=== PATIENT | female | born 1985 | race Caucasian/White ===

== ENCOUNTER 2020-07-13 14:07 | Observation (INO) | payer BC ==
--- NOTE | 2020-07-13 15:11 | CT ---
EXAMINATION TYPE: CT brain wo con DATE OF EXAM: 07/13/2020 COMPARISON: None. HISTORY: Stroke symptoms started yesterday. Acute onset neuro deficit. CT DLP: 1048.4 mGycm. Automated Exposure Control for Dose Reduction was Utilized. TECHNIQUE: CT scan of the head is performed without contrast. FINDINGS: There is no acute intracranial hemorrhage, mass effect, or midline shift identified. The ventricles and sulci are within normal limits in size. Sin-white matter differentiation is maintain ed. Prominence of CSF posterior aspect of the posterior fossa may reflect megacisterna magna. The kamilla bes are intact and the visualized sinuses are clear. IMPRESSION: No acute intracranial hemorrhage or midline shift is seen.
[2020-07-13 15:30] LABS: Basophils # (A) 0.1 k/uL (0-0.2); Basophils % (A) 1 %; Eosinophils # (A) 0.1 k/uL (0-0.7); Eosinophils % (A) 1 %; HCT 43.7 % (34.0-46.0); HGB 14.7 gm/dL (11.4-16.0); Lymphocytes # (A) 0.7 k/uL (1.0-4.8); Lymphocytes % (A) 6 %; MCHC 33.6 g/dL (31.0-37.0); Mean Platelet Volume 9.1; Monocytes # (A) 0.2 k/uL (0-1.0); Monocytes % (A) 1 %; Neutrophils # (A) 9.8 k/uL (1.3-7.7); Neutrophils % (A) 91 %; Platelet Count 193 k/uL (150-450); RBC 5.08 m/uL (3.80-5.40); RDW 12.7 % (11.5-15.5); WBC 10.8 k/uL (3.8-10.6)
--- NOTE | 2020-07-13 15:34 | CT ---
EXAMINATION TYPE: CT angio head neck DATE OF EXAM: 07/13/2020 HISTORY: Left arm weakness, acute onset neuro deficit. COMPARISON: None. CT DLP: 420.3 mGycm. Automated Exposure Control for Dose Reduction was Utilized. TECHNIQUE: CTA scan of the head and neck are performed with IV Contrast, patient injected with 65 mL of Isovue 370, axial images are obtained, coronal and sagittal reformatted images are reviewed. Thre e-D reconstructed images are created on an independent workstation and reviewed. FINDINGS: Carotid/Vascular Structures: Normal 3 vessel origin from the aortic arch. Normal origin right common carotid artery from the brachiocephalic artery. No significant plaque or stenosis in the common or in ternal carotid arteries bilaterally. Patent external carotid arteries bilaterally. Patent codominant vertebral basilar cysts system. Patent bilateral posterior communicating arteries. Patent anterior communicating artery. Hypoplastic right A1 segment with filling of the A2 segment due to patent anterior communicating artery, normal variant. No significant focal stenosis or aneurysmal change. Other: Dependent fluid in the right maxillary sinus. There is 1.0 cm mucous retention cyst or polyp i n the anterior left maxillary sinus. There are single bilateral low dense thyroid nodules, nonemergent thyroid ultrasound advised to [facility] evaluate. Slight scoliotic curvature. Slight grade 1 retrolisthesis C5 on C6 and C6 on C7. IMPRESSION: No significant stenosis in common and internal carotid arteries bilaterally. No signific ant stenosis or aneurysm at level of [place].
[2020-07-13 15:49] LABS: ALT 13 U/L (4-34); AST 15 U/L (14-36); African American GFR (CKD) >90 (>60 ml/min/1.73 sqM); Albumin 4.9 g/dL (3.5-5.0); Alkaline Phosphatase 63 U/L (38-126); Anion Gap 11 mmol/L; Blood Urea Nitrogen 10 mg/dL (7-17); Calcium 9.9 mg/dL (8.4-10.2); Carbon Dioxide 24 mmol/L (22-30); Chloride 104 mmol/L (98-107); Glucose 119 mg/dL (74-99); Non-African American GFR(CKD) >90 (>60 ml/min/1.73 sqM); Potassium 4.1 mmol/L (3.5-5.1); Sodium 139 mmol/L (137-145); Total Bilirubin 0.5 mg/dL (0.2-1.3); Total Protein 7.8 g/dL (6.3-8.2)
[2020-07-13 15:50] LABS: Partial Thromboplastin Time 24.6 sec (22.0-30.0); Prothrombin Time 10.6 sec (9.0-12.0)
--- NOTE | 2020-07-13 16:02 | ED ---
Recheck HPI - General Chief Complaint: Recheck/Abnormal Lab/Rx Stated Complaint: hypertension Time Seen by Provider: 07/13/20 14:28 Source: patient Mode of arrival: ambulatory Limitations: no limitations - History of Present Illness Initial Comments: 35-year-old female presenting for multiple complaints. 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 She states that her right side of her face was tingly and would not rise like the other side beginning at 1030PM 07/11/20. She states that her forehead was always able to move. She denies vision changes headaches nausea vomiting arm or leg weakness she denies chest pain or shortness of breath. Patient states when she went to the physician yesterday morning he put her on steroids diagnosed her with Martinez palsy she states that she felt the steroids help because of symptoms of the face resolved today. She states she did feel like the right side of her face was slightly swollen. she thought maybe it was even an allergic reaction. she states that her BP was elevated in the primary care office and she was told to monitor it. Pt states today her heart rate went up to 156 while [address] her fit bit alerted her and she felt flush. pt statse she was concerned it was related to her symptoms yesterdya and she presented to the ER. Upon arrival patient appears well nontoxic NIH 0. - Related Data Allergies Allergy/AdvReac Type Severity Reaction Status Date / Time Penicillins Allergy Unknown Verified 07/13/20 14:16 Review of Systems ROS Statement: Those systems with pertinent positive or pertinent negative responses have been documented in the HPI. ROS Other: All systems not noted in ROS Statement are negative. 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 History of Any Multi-Drug Resistant Organisms: None Reported Past Surgical History: No Surgical Hx Reported Past Psychological History: No Psychological Hx Reported Smoking Status: Never smoker Past Alcohol Use History: None Reported Past Drug Use History: None Reported General Exam - General Exam Comments Initial Comments: General: The patient is awake and alert, in no distress, and does not appear acutely ill. Eye: +3 mm pupils are equal, round and reactive to light, extra-ocular movements are intact. No nystagmus. There is normal conjunctiva bilaterally. No signs of icterus. Ears, nose, mouth and throat: There are moist mucous membranes and no oral lesions. Neck: The neck is supple, there is no tenderness or JVD. Cardiovascular: There is a regular rate and rhythm. No murmur, rub or gallop is appreciated. Respiratory: Lungs are clear to auscultation, respirations are non-labored, breath sounds are equal. No wheezes, stridor, rales, or rhonchi. Gastrointestinal: Soft, non-distended, non-tender abdomen without masses or organomegaly noted. There is no rebound or guarding present. Musculoskeletal: Normal ROM, no tenderness. Strength 5/5. Sensation intact. Pulses equal bilaterally 2+. Neurological: A&O x 3. CN II-XII intact, memory intact to immediately, intermediate and moth exterminator recall. Able to follow simple verbal. Able to name a common object (phone). High quality, labial (pa) and lingual (la) speech. Low quality posterior pharynx/larynx (ga) voice sounds. Able to express general knowledge (days in a week). No hemineglect or inattention noted. Finger agnosia (-) and spatially oriented (identified L index finger touched R shoulder with L index finger). Light touch sensation present over the face, chest, abdomen, back, UE bilaterally, and LE bilaterally. Able to localize point during point localization b/l and extinction. No visible bulk atrophy, hypertrophy, fasciculations, or myoclonus of the UE or LE b/l. Full PROM in UE and LE b/l. Bilateral muscle strength 5/5 for the following muscles: deltoid, biceps, triceps, brachioradialis, wrist extensors/flexor, hip flexor, hip abductors/adductors, hamstrings, quadriceps, feet dorsiflexors/plantar flexors. Finger to nose, finger to the examiners finger, and heel to sy coordinated and accurate b/l. Coordinated and even demonstration of hand flip, finger to thumb, and toe tap b/l. Gait is coordinated and even in stride with tandem.(-) pronator drift. No nuchal rigidity. Skin: Skin is warm and dry and no rashes or lesions are noted. Psychiatric: Cooperative, appropriate mood & affect, normal judgment. Limitations: no limitations Course Vital Signs 07/13/20 07/13/20 07/13/20 14:12 15:00 16:36 Temperature 99.2 F 98.2 F Pulse Rate 116 H 100 112 H Respiratory 18 16 18 Rate Blood Pressure 153/69 144/76 133/85 O2 Sat by Pulse 98 100 99 Oximetry - Reevaluation(s) Reevaluation #1: 07/13/20 17:01 Dr. Louis Tate recommended MRI of brain, TSH, LIpid panel, 2D echo, cardiology consultation and duel anticoagulation (aspirin and plavix), he states 40mg of lipitor can be initiated as well. he states neurology will see patient on Thursday. I relayed these requests to accepting physicain Dr. Castellanos 07/13/20 17:17 Medical Decision Making - Medical Decision Making Labs stable. No arrhythmias on EKG. Chest x-ray clear. CTA and CT brain without abnormality. Neurology consulted, agreeable to admission at this facility for TIA with specific recommends. Dr. Castellanos accepted admission. pt agreeable to admission. / megan agreeable to care plan. - Lab Data Result diagrams: 07/13/20 15:13 07/13/20 15:13 Lab Results 07/13/20 07/13/20 07/13/20 Range/Units 15:13 15:13 15:13 WBC 10.8 H (3.8-10.6) k/uL RBC 5.08 (3.80-5.40) m/uL Hgb 14.7 (11.4-16.0) gm/dL Hct 43.7 (34.0-46.0) % MCV 86.0 (80.0-100.0) fL MCH 29.0 (25.0-35.0) pg MCHC 33.6 (31.0-37.0) g/dL RDW 12.7 (11.5-15.5) % Plt Count 193 (150-450) k/uL MPV 9.1 Neutrophils % 91 % Lymphocytes % 6 % Monocytes % 1 % Eosinophils % 1 % Basophils % 1 % Neutrophils # 9.8 H (1.3-7.7) k/uL Lymphocytes # 0.7 L (1.0-4.8) k/uL Monocytes # 0.2 (0-1.0) k/uL Eosinophils # 0.1 (0-0.7) k/uL Basophils # 0.1 (0-0.2) k/uL PT 10.6 (9.0-12.0) sec INR 1.0 (<1.2) APTT 24.6 (22.0-30.0) sec Sodium 139 (137-145) mmol/L Potassium 4.1 (3.5-5.1) mmol/L Chloride 104 (98-107) mmol/L Carbon Dioxide 24 (22-30) mmol/L Anion Gap 11 mmol/L BUN 10 (7-17) mg/dL Creatinine 0.63 (0.52-1.04) mg/dL Est GFR (CKD-EPI)AfAm >90 (>60 ml/min/1.73 sqM) Est GFR (CKD-EPI)NonAf >90 (>60 ml/min/1.73 sqM) Glucose 119 H (74-99) mg/dL Calcium 9.9 (8.4-10.2) mg/dL Total Bilirubin 0.5 (0.2-1.3) mg/dL AST 15 (14-36) U/L ALT 13 (4-34) U/L Alkaline Phosphatase 63 (38-126) U/L Troponin I (0.000-0.034) ng/mL Total Protein 7.8 (6.3-8.2) g/dL Albumin 4.9 (3.5-5.0) g/dL 07/13/20 Range/Units 15:13 WBC (3.8-10.6) k/uL RBC (3.80-5.40) m/uL Hgb (11.4-16.0) gm/dL Hct (34.0-46.0) % MCV (80.0-100.0) fL MCH (25.0-35.0) pg MCHC (31.0-37.0) g/dL RDW (11.5-15.5) % Plt Count (150-450) k/uL MPV Neutrophils % % Lymphocytes % % Monocytes % % Eosinophils % % Basophils % % Neutrophils # (1.3-7.7) k/uL Lymphocytes # (1.0-4.8) k/uL Monocytes # (0-1.0) k/uL Eosinophils # (0-0.7) k/uL Basophils # (0-0.2) k/uL PT (9.0-12.0) sec INR (<1.2) APTT (22.0-30.0) sec Sodium (137-145) mmol/L Potassium (3.5-5.1) mmol/L Chloride (98-107) mmol/L Carbon Dioxide (22-30) mmol/L Anion Gap mmol/L BUN (7-17) mg/dL Creatinine (0.52-1.04) mg/dL Est GFR (CKD-EPI)AfAm (>60 ml/min/1.73 sqM) Est GFR (CKD-EPI)NonAf (>60 ml/min/1.73 sqM) Glucose (74-99) mg/dL Calcium (8.4-10.2) mg/dL Total Bilirubin (0.2-1.3) mg/dL AST (14-36) U/L ALT (4-34) U/L Alkaline Phosphatase (38-126) U/L Troponin I <0.012 (0.000-0.034) ng/mL Total Protein (6.3-8.2) g/dL Albumin (3.5-5.0) g/dL Disposition Clinical Impression: TIA (transient ischemic attack), Tachycardia, Elevated blood pressure reading Disposition: ADMITTED IP TO THIS [facility] Condition: Stable Is patient prescribed a controlled substance at d/c from ED?: No Referrals: Jamal Blake DO [Primary Care Provider] - 1-2 days Time of Disposition: 17:05 Decision to Admit Reason: Admit from EC Decision Date: 07/13/20 Decision Time: 17:05
[2020-07-13] MEDS ORDERED: ASPIRIN 325 MG TAB PO STA (16:07)
[2020-07-13] MEDS ORDERED: CLOPIDOGREL 75 MG TAB PO STA (16:55)
[2020-07-13] MEDS ORDERED: ATORVASTATIN 40 MG TAB PO STA (16:56)
--- NOTE | 2020-07-13 17:00 | XR ---
EXAMINATION TYPE: XR chest 2V DATE OF EXAM: 07/13/2020 COMPARISON: NONE HISTORY: Numbness in the face TECHNIQUE: 2 views FINDINGS: Heart and mediastinum are normal. Lungs are clear. Diaphragm is normal. Bony thorax appears normal. There are chest leads. IMPRESSION: Normal chest.
[2020-07-13] MEDS ORDERED: ASPIRIN 81 MG PO STA (17:18)
--- NOTE | 2020-07-13 18:53 | MR ---
EXAMINATION TYPE: MR brain wo con DATE OF EXAM: 07/13/2020 COMPARISON: None No evidence of cortical infarct. HISTORY: TIA, symptoms resolved. Multiplanar multiecho imaging of the brain was performed without contrast. Ventricles have normal size. There is no mass effect nor midline shift. There is no sign of intracran ial hemorrhage. Diffusion images show no evidence of an acute infarct. Brainstem is intact. Sin-whit e matter structures have fairly normal signal pattern. There is no evidence of cerebral edema. There is a single 3 mm focus of increased signal in the white matter left parietal lobe. There is a similar 3 mm focus at the subcortical lateral right posterior frontal lobe. The corpus callosum appears norm al. Cerebellum appears normal. Sella turcica appears normal. IMPRESSION: Isolated small white matter high signal foci of doubtful significance. Right maxillary sinusitis note d with fluid level.
[2020-07-14 08:19] LABS: Cholesterol 194 mg/dL (<200); HDL Cholesterol 44 mg/dL (40-60); LDL Cholesterol,Calculated 134 mg/dL (0-99); Triglycerides 82 mg/dL (<150)
[2020-07-14] MEDS ORDERED: ASPIRIN 325 MG TAB PO SCH (09:00)
[2020-07-14] MEDS: ASPIRIN 81 MG PO SCH (09:16)
--- NOTE | 2020-07-14 09:31 | P.CRDCN ---
History of Present Illness Consult date: 07/14/20 History of present illness: CHIEF COMPLAINT: Tachycardia HISTORY OF PRESENT ILLNESS: This is a 35-year-old female with no significant past medical history. Patient does not follow with a executive relations specialist. We have been asked to see the patient in consultation for tachycardia. Patient states Thursday night when she went to sleep she noticed that her face felt numb. She states that she took a Benadryl. When she woke up her face was still numb and she took another Benadryl. She states her symptoms did not resolve. On Thu she went to see her primary care physician was diagnosed with Martinez's palsy. She was placed on steroids. She states when she was at her physician's office her blood pressure was 150s/80s. She states her heart rate was elevated but she is not sure how high it was. She states yesterday she was driving and got a sharp shooting pain down her left arm. She states she looked at her fit that and noticed her heart rate started to increase and was in the 150s. She reports feeling palpitations. Due to her heart rate being elevated, she came to the hospital for further evaluation. At the time of examination this morning, the patient denies chest pain or pressure. She denies shortness of breath. She reports feeling palpitations. She does appear anxious about her recent diagnosis of Martinez's palsy. engine monitor reveals sinus tachycardia with heart rate in the 120s. Patient's heart rate at rest is in the 80s. No evidence of atrial fibrillation on the monitor. DIAGNOSTICS: EKG reveals sinus tachycardia Chest xray negative for acute process CTA brain negative for acute process CT brain negative for acute process MRI of the brain: Isolated small white matter high signal foci of doubtful significance. Laboratory data: W BC 10.8. Hemoglobin 14.7. Platelet count 193. Sodium 139. Potassium 4.1. BUN 10. Creatinine 0.63. TSH 1.370. Troponin negative 1. Current home cardiac medications include none REVIEW OF SYSTEMS: At the time of my exam: CONSTITUTIONAL: Denies fever or chills. HEENT: Denies blurred vision, vision changes, or eye pain. Denies hemoptysis CARDIOVASCULAR: Denies chest pain, orthopnea, PND. Reports palpitations. RESPIRATORY: No shortness of breath. GASTROINTESTINAL: Denies abdominal pain. Denies nausea or vomiting. HEMATOLOGIC: Denies bleeding disorders. GENITOURINARY: Denies any blood in urine. SKIN: Denies pruitis. Denies rash. PHYSICAL EXAM: VITAL SIGNS: Reviewed. GENERAL: Well-developed in no acute distress. HEENT: Head is normocephalic. Pupils are equal, round. Sclerae anicteric. Mucous membranes of the mouth are moist. Neck supple. No JVD or thyromegaly LUNGS: Respirations even and unlabored. Lungs essentially clear to auscultation bilaterally. HEART: Tachycardic. Regular rate and rhythm. S1 and S2 heard. ABDOMEN: Soft. Nondistended. Nontender. EXTREMITIES: Normal range of motion. No clubbing or cyanosis. Peripheral pulses intact. No lower extremity edema NEUROLOGIC: Awake and alert. Oriented x 3. ASSESSMENT: Palpitations Sinus tachycardia Recent diagnosis of Martinez's palsy PLAN: Continue telemetry monitoring Obtain 2-D echo to assess cardiac structure and function Neurology consulted. Await evaluation Further recommendations pending patient's course Nurse practitioner note has been reviewed by physician. Signing provider agrees with the documented findings, assessment, and plan of care. 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 History of Any Multi-Drug Resistant Organisms: None Reported Past Surgical History: No Surgical Hx Reported Additional Past Surgical History / Comment(s): wisdom teeth removed Past Anesthesia/Blood Transfusion Reactions: No Reported Reaction Past Psychological History: No Psychological Hx Reported Smoking Status: Never smoker Past Alcohol Use History: None Reported Past Drug Use History: None Reported - Past Family History Father Family Medical History: Hypertension Mother Family Medical History: Hyperlipidemia, Hypertension Medications and Allergies Home Medications Medication Instructions Recorded Confirmed Type Ascorbic Acid [Vitamin C] 1,000 mg PO DAILY 07/13/20 07/13/20 History Cholecalciferol [Vitamin D3 (25 1,000 unit PO DAILY 07/13/20 07/13/20 History Mcg = 1000 Iu)] Fish Oil/Dha/Epa [Fish Oil 1,200 1 cap PO DAILY 07/13/20 07/13/20 History mg Fish Oil] Magnesium Oxide [Giraldo] 500 mg PO DAILY 07/13/20 07/13/20 History predniSONE [Deltasone] See Taper PO DIRECTED 07/13/20 07/13/20 History Allergies Allergy/AdvReac Type Severity Reaction Status Date / Time Penicillins Allergy Unknown Verified 07/13/20 17:27 Physical Exam Vitals: Vital Signs Temp Pulse Pulse Resp BP BP Pulse Ox 07/14/20 08:36 121 H 16 07/14/20 07:33 98.1 F 121 H 16 144/84 99 07/14/20 03:00 98.1 F 119 H 16 135/80 100 07/13/20 20:40 99.3 F 115 H 16 132/79 100 07/13/20 18:43 99.7 F H 108 H 16 132/86 98 07/13/20 17:00 98.6 F 105 H 20 122/65 99 07/13/20 16:36 112 H 18 133/85 99 07/13/20 15:00 98.2 F 100 16 144/76 100 07/13/20 14:12 99.2 F 116 H 18 153/69 98 Intake and Output 07/13/20 07/14/20 07/14/20 22:59 06:59 14:59 Other: Voiding Method Toilet # Voids 1 Weight 79.379 kg Results 07/13/20 15:13 07/13/20 15:13 Cardiac Enzymes 07/13/20 07/13/20 Range/Units 15:13 15:13 AST 15 (14-36) U/L Troponin I <0.012 (0.000-0.034) ng/mL Coagulation 07/13/20 Range/Units 15:13 PT 10.6 (9.0-12.0) sec APTT 24.6 (22.0-30.0) sec Lipids 07/14/20 Range/Units 06:37 Triglycerides 82 (<150) mg/dL Cholesterol 194 (<200) mg/dL HDL Cholesterol 44 (40-60) mg/dL CBC 07/13/20 Range/Units 15:13 WBC 10.8 H (3.8-10.6) k/uL RBC 5.08 (3.80-5.40) m/uL Hgb 14.7 (11.4-16.0) gm/dL Hct 43.7 (34.0-46.0) % Plt Count 193 (150-450) k/uL Comprehensive Metabolic Panel 07/13/20 Range/Units 15:13 Sodium 139 (137-145) mmol/L Potassium 4.1 (3.5-5.1) mmol/L Chloride 104 (98-107) mmol/L Carbon Dioxide 24 (22-30) mmol/L BUN 10 (7-17) mg/dL Creatinine 0.63 (0.52-1.04) mg/dL Glucose 119 H (74-99) mg/dL Calcium 9.9 (8.4-10.2) mg/dL AST 15 (14-36) U/L ALT 13 (4-34) U/L Alkaline Phosphatase 63 (38-126) U/L Total Protein 7.8 (6.3-8.2) g/dL Albumin 4.9 (3.5-5.0) g/dL Current Medications Generic Name Dose Route Start Last Admin Trade Name Freq PRN Reason Stop Dose Admin Aspirin 81 mg 07/14/20 09:00 Aspirin 81 Mg PO DAILY ABRIL Intake and Output 07/13/20 07/14/20 07/14/20 22:59 06:59 14:59 Other: Voiding Method Toilet # Voids 1 Weight 79.379 kg 07/13/20 15:13 07/13/20 15:13
--- NOTE | 2020-07-14 11:05 | P.HPIM ---
History of Present Illness H&P Date: 07/14/20 Chief Complaint: Tachycardia and increased blood pressure Ms. Barragan is a 35-year-old female with no significant past medical history coming to the hospital stating that she has noted an increase in her heart rate on her fit bit and also that her blood pressure was high. Patient states that on Thursday night before going to sleep around 10:30 PM she felt numbness on the right side of her face so she took some Benadryl but her face still not and her symptoms did not resolve. So on morning she went to see her primary care physician who diagnosed her with Martinez's palsy and gave her a steroid shot and placed her on tapering dose of steroids. Next a she felt that her symptoms of the face have resolved. Later on while driving her fit bit showed that her heart rate was up to 156 and also that she had felt a feeling of flushing and became anxious and came to the ER. In the ER patient had CT of the head that was negative for any acute intracranial hemorrhage or midline shift. She also had CT and injury of the head and neck showing no significant stenosis in, and internal carotid arteries bilaterally. No significant stenosis or aneurysm at the level of [place]. EKG done in the yard showing sinus tachycardia. The patient had an MRI of the brain showing isolated small white matter high signal foci of doubtful significance. Right maxillary sinusitis noted with fluid level. Patient had blood work done showing white count of 10.8, hemoglobin 14.7, platelets 193. Electrolytes within normal limits. LDL of 134, TSH of 1.370. Currently the patient is comfortably lying in bed appears to be no acute distress. The patient states that she does not have any facial tingling or numbness. She denies having any slurring of speech, any weakness of her extremities. Denies having any chest pain and difficulty in breathing. No swelling of her lower extremity abdominal pain nausea vomiting or diarrhea. Review of Systems REVIEW OF SYSTEMS: CONSTITUTIONAL: No fever, no malaise, no fatigue. HEENT: No recent visual problems or hearing problems. Denied any sore throat. CARDIOVASCULAR: No chest pain, orthopnea, PND, no palpitations, no syncope. PULMONARY:no hemoptysis. GASTROINTESTINAL: No diarrhea, no nausea, no vomiting, no abdominal pain. NEUROLOGICAL: No headaches, no weakness, no numbness. HEMATOLOGICAL: Denies any bleeding or petechiae. GENITOURINARY: Denies any burning micturition, frequency, or urgency. MUSCULOSKELETAL/RHEUMATOLOGICAL: Denies any joint pain, swelling, or any muscle pain. ENDOCRINE: Denies any polyuria or polydipsia. The rest of the 14-point review of systems is negative. 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 History of Any Multi-Drug Resistant Organisms: None Reported Past Surgical History: No Surgical Hx Reported Additional Past Surgical History / Comment(s): wisdom teeth removed Past Anesthesia/Blood Transfusion Reactions: No Reported Reaction Past Psychological History: No Psychological Hx Reported Smoking Status: Never smoker Past Alcohol Use History: None Reported Past Drug Use History: None Reported - Past Family History Father Family Medical History: Hypertension Mother Family Medical History: Hyperlipidemia, Hypertension Medications and Allergies Home Medications Medication Instructions Recorded Confirmed Type Ascorbic Acid [Vitamin C] 1,000 mg PO DAILY 07/13/20 07/13/20 History Cholecalciferol [Vitamin D3 (25 1,000 unit PO DAILY 07/13/20 07/13/20 History Mcg = 1000 Iu)] Fish Oil/Dha/Epa [Fish Oil 1,200 1 cap PO DAILY 07/13/20 07/13/20 History mg Fish Oil] Magnesium Oxide [Giraldo] 500 mg PO DAILY 07/13/20 07/13/20 History predniSONE [Deltasone] See Taper PO DIRECTED 07/13/20 07/13/20 History Allergies Allergy/AdvReac Type Severity Reaction Status Date / Time Penicillins Allergy Unknown Verified 07/13/20 17:27 Physical Exam Vitals: Vital Signs Temp Pulse Pulse Resp BP BP Pulse Ox 07/14/20 08:36 121 H 16 07/14/20 07:33 98.1 F 121 H 16 144/84 99 07/14/20 03:00 98.1 F 119 H 16 135/80 100 07/13/20 20:40 99.3 F 115 H 16 132/79 100 07/13/20 18:43 99.7 F H 108 H 16 132/86 98 07/13/20 17:00 98.6 F 105 H 20 122/65 99 07/13/20 16:36 112 H 18 133/85 99 07/13/20 15:00 98.2 F 100 16 144/76 100 07/13/20 14:12 99.2 F 116 H 18 153/69 98 Intake and Output 07/13/20 07/14/20 07/14/20 22:59 06:59 14:59 Other: Voiding Method Toilet # Voids 1 Weight 79.379 kg PHYSICAL EXAMINATION: GENERAL: The patient is alert and oriented X3, in any acute distress. Well developed, well nourished. HEENT: Pupils are round and equally reacting to light. EOMI. No scleral icterus. No conjunctival pallor. Normocephalic, atraumatic. No pharyngeal erythema. No thyromegaly. CARDIOVASCULAR: S1 and S2 present. No murmurs, rubs, or gallops. PULMONARY: Chest is clear to auscultation, no wheezing or crackles. ABDOMEN: Soft, nontender, nondistended, normoactive bowel sounds. No palpable organomegaly. MUSCULOSKELETAL: No joint swelling or deformity. EXTREMITIES: No cyanosis, clubbing, or pedal edema. NEUROLOGICAL: No facial droop, strength is 5 out of 5 in all 4 extremities. Normal reflexes. No focal neurological deficits. SKIN: No rash Results CBC & Chem 7: 07/15/20 06:13 07/15/20 06:13 Labs: Abnormal Lab Results - Last 24 Hours (Table) 07/13/20 07/13/20 07/14/20 Range/Units 15:13 15:13 06:37 WBC 10.8 H (3.8-10.6) k/uL Neutrophils # 9.8 H (1.3-7.7) k/uL Lymphocytes # 0.7 L (1.0-4.8) k/uL Glucose 119 H (74-99) mg/dL LDL Cholesterol, Calc 134 H (0-99) mg/dL Thrombosis Risk Factor Assmnt - Choose All That Apply Each Factor Represents 1 point: Obesity (BMI >25), Oral contraceptives or hormone replacement therapy Other Risk Factors: No Other congenital or acquired thrombophilia - If yes, enter type in comment: Yes (TIA symptoms) Thrombosis Risk Factor Assessment Total Risk Factor Score: 2 Thrombosis Risk Factor Assessment Level: Low Risk Assessment and Plan Assessment: ASSESSMENT 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 Patient's symptoms of the [place] palsy are improving. Cardiology has been consulted for tachycardia, we ordered an echo that is currently pending. Neurology has been consulted. Fur ther recommendations to follow depending on the progress of the patient. The treatment plan was discussed in detail with the patient at bedside today. Patient became tearful, states that she is worried about her health, reassurance provided.
--- NOTE | 2020-07-14 12:21 | ECHOF ---
Referral Reason:TIA MEASUREMENTS -------- HEIGHT: 180.3 cm WEIGHT: 79.4 kg BP: RVIDd: 3.1 cm (< 3.3) IVSd: 0.8 cm (0.6 - 1.1) LVIDd: 4.2 cm (3.9 - 5.3) LVPWd: 1.1 cm (0.6 - 1.1) IVSs: 1.2 cm LVIDs: 2.6 cm LVPWs: 1.7 cm LAESV Index (A-L): 15.46 ml/m Ao Diam: 2.4 cm (2.0 - 3.7) AV Cusp: 1.6 cm (1.5 - 2.6) LA Diam: 2.1 cm (2.7 - 3.8) MV EXCURSION: 19.089 mm (> 18.000) MV EF SLOPE: 116 mm/s (70 - 150) EPSS: 0.7 cm MV E Vlad: 0.60 m/s MV DecT: 162 ms MV A Vlad: 0.68 m/s MV E/A Ratio: 0.88 RAP: 5.00 mmHg RVSP: 21.98 mmHg FINDINGS -------- Sinus rhythm. This was a technically adequate study. The left ventricular size is normal. Left ventricular wall thickness is normal. Overall left vent ricular systolic function is normal with, an EF between 55 - 60 %. The diastolic filling pattern is normal for the age of the patient 6.64. The right ventricle is normal in size. Normal LA size by volume 22+/-6 ml/m2. The right atrial size is normal. The aortic valve is trileaflet, and appears structurally normal. No aortic stenosis or regurgitation. The mitral valve is normal. There is trace mitral regurgitation. The tricuspid valve appears structurally normal. Trace tricuspid regurgitation present. Right juan ramon tricular systolic pressure is normal at < 35 mmHg. There is no pulmonic regurgitation present. The aortic root size is normal. Normal inferior vena cava with normal inspiratory collapse consistent with estimated right atrial pre ssure of 5 mmHg. There is no pericardial effusion. CONCLUSIONS -------- 1. Left ventricular wall thickness is normal. 2. Overall left ventricular systolic function is normal with, an EF between 55 - 60 %. 3. The diastolic filling pattern is normal for the age of the patient 6.64 4. Normal LA size by volume 22+/-6 ml/m2. 5. The aortic valve is trileaflet, and appears structurally normal. No aortic stenosis or regurgitati on. 6. There is trace mitral regurgitation. 7. Trace tricuspid regurgitation present. 8. There is no pericardial effusion. PROCESS SAFETY ENGINEERING TECHNOLOGIST: Jeanne Hill RDCS
[2020-07-14] MEDS: predniSONE 20 MG TAB PO SCH (12:40)
[2020-07-15] MEDS: ASPIRIN 81 MG PO SCH (07:23)
[2020-07-15] MEDS: predniSONE 20 MG TAB PO SCH (07:23)
[2020-07-15 07:25] LABS: Basophils # (A) 0.1 k/uL (0-0.2); Basophils % (A) 1 %; Eosinophils # (A) 0.1 k/uL (0-0.7); Eosinophils % (A) 1 %; HCT 40.5 % (34.0-46.0); HGB 13.4 gm/dL (11.4-16.0); Lymphocytes # (A) 2.1 k/uL (1.0-4.8); Lymphocytes % (A) 25 %; MCH 29.1 pg (25.0-35.0); MCV 88.2 fL (80.0-100.0); Mean Platelet Volume 9.2; Monocytes # (A) 0.5 k/uL (0-1.0); Monocytes % (A) 6 %; Neutrophils # (A) 5.6 k/uL (1.3-7.7); Neutrophils % (A) 66 %; Platelet Count 190 k/uL (150-450); RBC 4.59 m/uL (3.80-5.40); RDW 13.2 % (11.5-15.5); WBC 8.5 k/uL (3.8-10.6)
[2020-07-15 07:39] LABS: African American GFR (CKD) >90 (>60 ml/min/1.73 sqM); Anion Gap 6 mmol/L; Blood Urea Nitrogen 15 mg/dL (7-17); Calcium 9.5 mg/dL (8.4-10.2); Carbon Dioxide 28 mmol/L (22-30); Chloride 105 mmol/L (98-107); Glucose 85 mg/dL (74-99); Non-African American GFR(CKD) >90 (>60 ml/min/1.73 sqM); Sodium 139 mmol/L (137-145)
--- NOTE | 2020-07-15 11:00 | P.PN ---
Subjective Progress Note Date: 07/15/20 CHIEF COMPLAINT: Tachycardia HISTORY OF PRESENT ILLNESS: 07/14/2020 This is a 35-year-old female with no significant past medical history. 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 We have been asked to see the patient in consultation for tachycardia. Patient states Thursday night when she went to sleep she noticed that her face felt numb. She states that she took a Benadryl. When she woke up her face was still numb and she took another Benadryl. She states her symptoms did not resolve. On she went to see her primary care physician was diagnosed with Martinez's palsy. She was placed on steroids. She states when she was at her physician's office her blood pressure was 150s/80s. She states her heart rate was elevated but she is not sure how high it was. She states yesterday she was driving and got a sharp shooting pain down her left arm. She states she looked at her fit that and noticed her heart rate started to increase and was in the 150s. She reports feeling palpitations. Due to her heart rate being elevated, she came to the hospital for further evaluation. At the time of examination this morning, the patient denies chest pain or pressure. She denies shortness of breath. She reports feeling palpitations. She does appear anxious about her recent diagnosis of Martinez's palsy. gambling monitor reveals sinus tachycardia with heart rate in the 120s. Patient's heart rate at rest is in the 80s. No evidence of atrial fibrillation on the monitor. 07/15/2020 Patient examined this morning at the bedside. She denies chest pain or pressure. She denies shortness of breath. She reports feeling some palpitations overnight. Echocardiogram completed revealed ejection fraction 55- 60%, trace mitral regurgitation and trace tricuspid regurgitation. PHYSICAL EXAM: VITAL SIGNS: Reviewed. GENERAL: Well-developed in no acute distress. HEENT: Head is normocephalic. Pupils are equal, round. Sclerae anicteric. Mucous membranes of the mouth are moist. Neck supple. No JVD or thyromegaly LUNGS: Respirations even and unlabored. Lungs essentially clear to auscultation bilaterally. HEART: Tachycardic. Regular rate and rhythm. S1 and S2 heard. ABDOMEN: Soft. Nondistended. Nontender. EXTREMITIES: Normal range of motion. No clubbing or cyanosis. Peripheral pulses intact. No lower extremity edema NEUROLOGIC: Awake and alert. Oriented x 3. ASSESSMENT: Palpitations Sinus tachycardia Recent diagnosis of Martinez's palsy PLAN: Patient is awaiting neurology evaluation Patient is stable from a cardiac perspective We will sign off. Please re-consult if needed. Nurse practitioner note has been reviewed by physician. Signing provider agrees with the documented findings, assessment, and plan of care. Objective - Vital Signs Vital signs: Vital Signs Temp 97.6 F 07/15/20 07:22 Pulse 110 H 07/15/20 08:13 Resp 16 07/15/20 08:13 BP 135/79 07/15/20 07:22 Pulse Ox 100 07/15/20 07:22 Intake & Output 07/14/20 07/15/20 07/15/20 18:59 06:59 18:59 Intake Total 1000 Balance 1000 Intake: Oral 1000 Other: Voiding Method Toilet Toilet # Voids 4 1 1 - Labs CBC & Chem 7: 07/15/20 06:13 07/15/20 06:13
--- NOTE | 2020-07-15 15:27 | P.PN ---
Subjective Progress Note Date: 07/15/20 Principal diagnosis: Maritnez's palsy - right side of the face Palpitations Sinus tachycardia Anxiety Ms. Barragan is a 35-year-old female with no significant past medical history coming to the hospital stating that she has noted an increase in her heart rate on her fit bit and also that her blood pressure was high. Patient states that on Thursday night before going to sleep around 10:30 PM she felt numbness on the right side of her face so she took some Benadryl but her face still not and her symptoms did not resolve. So on morning she went to see her primary care physician who diagnosed her with Martinez's palsy and gave her a steroid shot and placed her on tapering dose of steroids. Next a she felt that her symptoms of the face have resolved. Later on while driving her fit bit showed that her heart rate was up to 156 and also that she had felt a feeling of flushing and became anxious and came to the ER. In the ER patient had CT of the head that was negative for any acute intracranial hemorrhage or midline shift. She also had CT and injury of the head and neck showing no significant stenosis in, and internal carotid arteries bilaterally. No significant stenosis or aneurysm at the level of [place]. EKG done in the yard showing sinus tachycardia. The patient had an MRI of the brain showing isolated small white matter high signal foci of doubtful significance. Right maxillary sinusitis noted with fluid level. Patient had blood work done showing white count of 10.8, hemoglobin 14.7, platelets 193. Electrolytes within normal limits. LDL of 134, TSH of 1.370. On 07/15/2020 - patient is lying comfortably in bed appears to be no acute distress. She had an echocardiogram done yesterday showing EF of 55-60%. Patient states that cardiology spoke to her this morning, and she felt better after talking to them, knowing that her echocardiogram with his within normal limits. Patient denies having any chest pain or palpations. No cough or difficulty breathing. No abdominal pain nausea vomiting or diarrhea. Patient denies having any weakness of her extremities. No speech abnormalities. Patient denies having any tingling or numbness of the right side of the face anymore. Vitals have been reviewed and she is slightly tachycardic, blood pressure 1 36 / 81 saturating at 99% on room air and temperature of 98.8. Reviewed patient's labs white count of 8.5, hemoglobin is 13.4, platelets 190. Electrolytes within normal limits. Active Medications Aspirin (Aspirin 81 Mg) 81 mg PO DAILY [facility] Last Admin: 07/15/20 07:23 Dose: 81 mg Documented by: Prednisone (Prednisone 20 Mg Tab) 60 mg PO DAILY [facility]; Taper Stop: 07/24/20 12:59 Last Admin: 07/15/20 07:23 Dose: 60 mg Documented by: Objective - Vital Signs Vital signs: Vital Signs Temp 97.6 F 07/15/20 07:22 Pulse 110 H 07/15/20 08:13 Resp 16 07/15/20 08:13 BP 135/79 07/15/20 07:22 Pulse Ox 100 07/15/20 07:22 Intake & Output 07/14/20 07/15/20 07/15/20 18:59 06:59 18:59 Intake Total 1000 Balance 1000 Intake: Oral 1000 Other: Voiding Method Toilet Toilet # Voids 4 1 1 - Exam PHYSICAL EXAMINATION: GENERAL: The patient is alert and oriented X3, in any acute distress. Well developed, well nourished. HEENT: Pupils are round and equally reacting to light. EOMI. No scleral icterus. No conjunctival pallor. Normocephalic, atraumatic. No pharyngeal erythema. No thyromegaly. CARDIOVASCULAR: S1 and S2 present. No murmurs, rubs, or gallops. PULMONARY: Chest is clear to auscultation, no wheezing or crackles. ABDOMEN: Soft, nontender, nondistended, normoactive bowel sounds. No palpable organomegaly. MUSCULOSKELETAL: No joint swelling or deformity. EXTREMITIES: No cyanosis, clubbing, or pedal edema. NEUROLOGICAL: No facial droop, strength is 5 out of 5 in all 4 extremities. Normal reflexes. No focal neurological deficits. 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 Patient's symptoms of the [place] palsy are improving, continue with prednisone tapering dose. Cardiology has been consulted for tachycardia, echocardiogram done yesterday showing ejection fraction of 55-60%. Neurology has been consulted, pending for tomorrow morning. Further recommendations to follow depending on the progress of the p atient.
[2020-07-16 08:47] VITALS: BP 152/90; PULSE 99; RESP 18; TEMP 98.8
[2020-07-16] MEDS: ASPIRIN 81 MG PO SCH (09:12)
[2020-07-16] MEDS: predniSONE 20 MG TAB PO SCH (09:12)
[2020-07-16] MEDS ORDERED: amLODIPine 5 MG TAB PO SCH (12:00)
--- NOTE | 2020-07-16 13:41 | P.CNNES ---
History of Present Illness Consult date: 07/16/20 Requesting physician: Karol Norris Reason for Consult: Concerned about paroxysmal atrial fibrillation? Bouts of tachycardia History of Present Illness: Patient is a 35-year-old female came to the hospital on 07/13/2020 at 2:07 PM for multiple symptoms. Patient states that her symptoms started on 07/11/2020 with HEI. She took Claritin at 11:30 PM and then noticed her lip and chin on the right side felt numb and swollen. She took Benadryl, and slept. Next day on , she was no better, took more Benadryl. She called her doctor and was seen by her primary physician, who diagnosed her with possible Maritnez's palsy and gave a steroid shot in the office. Next day on Thursday she started oral prednisone. She was driving when she noticed heart palpitations and fitbit reported her heart rate was 156. She felt flushed. She felt pain in the left arm from shoulder down to the hand. She got concerned therefore came to the ER. Denies any visual changes or headache, nausea, vomiting arm or leg w eakness. No chest pain or shortness of breath. CT head showed no acute process. CTA of head and neck showed no significant stenosis in common or internal carotid arteries bilaterally. No stenosis at the level of [place] of [place]. EKG shows sinus tachycardia, chest x-ray normal. MRI of the brain showed isolated small white matter high signal foci of doubtful significance. 2-D echo showed left ventricular wall thickness is normal. EF is 55-60%. Normal left atrial size. Trace MR. Patient's Chem-7, CBC, PT/PTT, hepatic panel is normal. Cholesterol is 194 LDL 134, HDL 44 and triglycerides 82. TSH is normal. Patient has been seen by director diversity and no evidence of atrial fibrillation noted on the monitor. She has sinus tachycardia. Patient is currently on aspirin 81 mg and prednisone 60 mg daily. Review of Systems Present completely unremarkable. All 14 point of review systems reviewed. Patient does have palpitations sometimes. 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 History of Any Multi-Drug Resistant Organisms: None Reported Past Surgical History: No Surgical Hx Reported Additional Past Surgical History / Comment(s): wisdom teeth removed Past Anesthesia/Blood Transfusion Reactions: No Reported Reaction Past Psychological History: No Psychological Hx Reported Smoking Status: Never smoker Past Alcohol Use History: None Reported Past Drug Use History: None Reported - Past Family History Father Family Medical History: Hypertension Mother Family Medical History: Hyperlipidemia, Hypertension Medications and Allergies Home Medications Medication Instructions Recorded Confirmed Type Ascorbic Acid [Vitamin C] 1,000 mg PO DAILY 07/13/20 07/13/20 History Cholecalciferol [Vitamin D3 (25 1,000 unit PO DAILY 07/13/20 07/13/20 History Mcg = 1000 Iu)] Fish Oil/Dha/Epa [Fish Oil 1,200 1 cap PO DAILY 07/13/20 07/13/20 History mg Fish Oil] Magnesium Oxide [Giraldo] 500 mg PO DAILY 07/13/20 07/13/20 History predniSONE [Deltasone] See Taper PO DIRECTED 07/13/20 07/13/20 History Allergies Allergy/AdvReac Type Severity Reaction Status Date / Time Penicillins Allergy Unknown Verified 07/13/20 17:27 Physical Examination - Vital Signs Vital Signs: Vital Signs Temp Pulse Resp BP Pulse Ox 07/16/20 08:44 98.8 F 99 18 152/90 100 07/16/20 07:33 95 07/16/20 03:00 98.5 F 88 16 133/77 99 07/15/20 21:00 98.0 F 83 16 152/89 07/15/20 14:21 98.8 F 112 H 16 136/81 99 Intake and Output 07/15/20 07/16/20 07/16/20 22:59 06:59 14:59 Intake Total 240 Balance 240 Intake: Oral 240 Other: # Voids 1 0 On examination patient is a young female, in no acute distress. Patient is alert and awake fully oriented. Speech and language functions are normal. Attention and concentration fund of knowledge is adequate. On cranial nerve exam his pupils are round and reactive to light, visual martinez are full on confrontation, extraocular muscles are intact with no nystagmus. Face symmetric, tongue protrudes to the midline. Palatal elevation and sensation normal. Hearing and shoulder shrug normal. On muscle strength testing there is no pronator drift and the strength is normal in arms and legs distally and proximally reflexes are 2+ and plantars downgoing. Sensory touch is equal. No ataxia for [id number] or [id number] testing. Tone and bulk of muscles normal. Gait normal. No carotid bruit or murmur, peripheral pulses are present. Abdomen soft nontender, chest is clear. Results - Laboratory Findings CBC and BMP: 07/15/20 06:13 07/15/20 06:13 Abnormal Lab Findings: Abnormal Labs 07/13/20 07/13/20 07/14/20 15:13 15:13 06:37 WBC 10.8 H Neutrophils # 9.8 H Lymphocytes # 0.7 L Glucose 119 H LDL Cholesterol, Calc 134 H Assessment and Plan Assessment: * Right lower facial numbness and swelling, probably not Martinez's palsy. Doubt TIA. Possible due to some ? ALLERGIC reaction * Excessive caffeine intake. * Palpitations and tachycardia, likely due to excessive caffeine, probably due to side effects of corticosteroids. Plan: * Patient does not have Martinez's palsy. Would stop corticosteroids. * Patient recommended to watch herself. If she develops any obvious facial droopiness, then may resume corticosteroids, but not necessary at this time. I don't believe she has Martinez's palsy. * Patient's thyroid functions are normal. Patient strongly recommended to limit amount of caffeine intake. She drinks 24 ounce 4 glasses of coffee per day. * Neurologically clear for discharge.
--- NOTE | 2020-07-16 14:09 | P.DS ---
Providers Date of admission: 07/13/20 15:56 Expected date of discharge: 07/16/20 Attending physician: Rani Carmen Consults: 07/14/20 08:00 Consult Physician Routine Consulting Provider: Katie De La Paz Consult Reason/Comments: concern about paroxysmal A fib? bouts of tachycardia at home Do you want consulting provider notified?: Yes, Notify in am [facility] Course: Ms. Barragan is a 35-year-old female with no significant past medical history coming to the hospital stating that she has noted an increase in her heart rate on her fit bit and also that her blood pressure was high. Patient states that on Thursday night before going to sleep around 10:30 PM she felt numbness on the right side of her face so she took some Benadryl but her face still not and her symptoms did not resolve. So on morning she went to see her primary care physician who diagnosed her with Martinez's palsy and gave her a steroid shot and placed her on tapering dose of steroids. Next a she felt that her symptoms of the face have resolved. Later on while driving her fit bit showed that her heart rate was up to 156 and also that she had felt a feeling of flushing and became anxious and came to the ER. In the ER patient had CT of the head that was negative for any acute intracranial hemorrhage or midline shift. She also had CT and injury of the hea d and neck showing no significant stenosis in, and internal carotid arteries bilaterally. No significant stenosis or aneurysm at the level of [place] of [place]. EKG done in the yard showing sinus tachycardia. The patient had an MRI of the brain showing isolated small white matter high signal foci of doubtful significance. Right maxillary sinusitis noted with fluid level. Patient had blood work done showing white count of 10.8, hemoglobin 14.7, platelets 193. Electrolytes within normal limits. LDL of 134, TSH of 1.370. Hospital course - patient was having tachycardia, cardiology has been consulted. Patient had an echocardiogram done showing ejection fraction 50-60%. Neurology has been consulted, she was evaluated and they suggested that she be off of steroids. As the steroids are causing tachycardia and increasing the blood pressure. Patient is advised to keep a watch on her symptoms, if her symptoms worsen she is advised to take her prednisone. So the patient is being disch arged home in a stable condition after being cleared by cardiology and neurology. DISCHARGE DIAGNOSIS Right lower face numbness and swelling -resolved Sinus tachycardia Anxiety Follow-up: Patient is advised to follow up with her primary care physician in 2- 3 days. Patient Condition at Discharge: Stable Plan - Discharge Summary New Discharge Prescriptions: Continue Fish Oil/Dha/Epa [Fish Oil 1,200 mg Fish Oil] 1 cap PO DAILY Cholecalciferol [Vitamin D3 (25 Mcg = 1000 Iu)] 1,000 unit PO DAILY Ascorbic Acid [Vitamin C] 1,000 mg PO DAILY Discontinued predniSONE [Deltasone] See Taper PO DIRECTED Magnesium Oxide [Giraldo] 500 mg PO DAILY Discharge Medication List Ascorbic Acid [Vitamin C] 1,000 mg PO DAILY 07/13/20 [History] Cholecalciferol [Vitamin D3 (25 Mcg = 1000 Iu)] 1,000 unit PO DAILY 07/13/20 [History] Fish Oil/Dha/Epa [Fish Oil 1,200 mg Fish Oil] 1 cap PO DAILY 07/13/20 [History] Follow up Appointment(s)/Referral(s): Michelet Stringer MD [STAFF PHYSICIAN] - 3 Weeks Jamal Blake DO [Primary Care Provider] - 1-2 days Discharge Disposition: HOME SELF-CARE
== END 2020-07-16 15:18 | disposition home or self-care (01) ==
LOC: EC 14:07 → 1SOBS 15:56
PROVIDERS: ADMIT Hospitalist; ATTEND Hospitalist
DX: R20.0 Anesthesia of skin (principal); R60.9 Edema, unspecified; R00.0 Tachycardia, unspecified; M79.602 Pain in left arm; R00.2 Palpitations; J32.0 Chronic maxillary sinusitis; R03.0 Elevated blood-pressure reading, without diagnosis of hypertension; E66.9 Obesity, unspecified; Z68.25 Body mass index [BMI] 25.0-25.9, adult; F41.9 Anxiety disorder, unspecified; G51.0 Bell's palsy; Z88.0 Allergy status to penicillin; Z82.49 Family history of ischemic heart disease and other diseases of the circulatory system
CPT/HCPCS: 99285; 36415; 94760; 93005; 93306; 97161; 80061; 80053; 80048; 84443; 84484; 85025 ×2; 85610; 85730; 71046; 70496; 70450; 70498; 70551; G0378 ×4; J7512 ×3; Q9967

== ENCOUNTER 2024-12-23 12:24 | Emergency (ER) | payer BC ==
--- NOTE | 2024-12-23 12:55 | ED ---
General Adult HPI - General Chief complaint: Vaginal Bleeding Stated complaint: Vaginal bleeding Time Seen by Provider: 12/23/24 12:36 Source: patient, RN notes reviewed Mode of arrival: ambulatory Limitations: no limitations - History of Present Illness Initial comments: 39-year-old female presenting to emergency room with complaints of vaginal bleeding over the past 15 days. Patient states that a week ago she began to experience a what was thought to be a heavy menstrual cycle with passage of bleeding and clots. She states over the past week the bleeding has intensified. Patient has an appointment with her OB on Thursday however she was instructed reports the emergency department to evaluate for acute blood loss anemia. She denies pelvic/abdominal cramping, nausea, vomiting, dizziness, lightheadedness, headaches, fevers or chills. She states that she has a history of uterine fibroids that is scheduled for a total hysterectomy in February. - Related Data Home Medications Medication Instructions Recorded Confirmed Ascorbic Acid [Vitamin C] 1,000 mg PO DAILY 07/13/20 07/13/20 Cholecalciferol [Vitamin D3 (25 1,000 unit PO DAILY 07/13/20 07/13/20 Mcg = 1000 Iu)] Fish Oil/Dha/Epa [Fish Oil 1,200 1 cap PO DAILY 07/13/20 07/13/20 mg Fish Oil] Allergies Allergy/AdvReac Type Severity Reaction Status Date / Time Penicillins Allergy Unknown Verified 12/23/24 12:26 Review of Systems ROS Statement: Those systems with pertinent positive or pertinent negative responses have been documented in the HPI. ROS Other: All systems not noted in ROS Statement are negative. 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 hystroscopy with biopsy Past Anesthesia/Blood Transfusion Reactions: No Reported Reaction Past Psychological History: No Psychological Hx Reported Smoking Status: Never smoker Past Alcohol Use History: None Reported Past Drug Use History: None Reported - Past Family History Father Family Medical History: Hypertension Mother Family Medical History: Hyperlipidemia, Hypertension General Exam Limitations: no limitations Neck exam: Present: normal inspection. Absent: tenderness, meningismus, lymphadenopathy Respiratory exam: Present: normal lung sounds bilaterally. Absent: respiratory distress, wheezes, rales, rhonchi, stridor Cardiovascular Exam: Present: regular rate, normal rhythm, normal heart sounds. Absent: systolic murmur, diastolic murmur, rubs, gallop, clicks GI/Abdominal exam: Present: soft, normal bowel sounds. Absent: distended, tenderness, guarding, rebound, rigid Extremities exam: Present: normal inspection, full ROM, normal capillary refill. Absent: tenderness, pedal edema, joint swelling, calf tenderness Back exam: Present: normal inspection. Absent: CVA tenderness (R), CVA tenderness (L) Skin exam: Present: warm, dry, intact, normal color. Absent: rash Course Vital Signs 12/23/24 12/23/24 12:26 15:07 Temperature 98.6 F 98.7 F Pulse Rate 94 85 Respiratory 18 16 Rate Blood Pressure 149/83 132/74 O2 Sat by Pulse 100 98 Oximetry Medical Decision Making - Medical Decision Making Was pt. sent in by a medical professional or institution (, PA, CONSTRUCTION PERSON, urgent care, hospital, or [facility]...) When possible be specific @ -No Did you speak to anyone other than the patient for history (EMS, parent, family, police, friend...)? What history was obtained from this source @ -No Did you review nursing and triage notes (agree or disagree)? Why? @ -I reviewed and agree with nursing and triage notes Were old charts reviewed (outside hosp., previous admission, EMS record, old EKG, old radiological studies, urgent care reports/EKG's, [facility] records)? Report findings @ -No old charts were reviewed Differential Diagnosis (chest pain, altered mental status, abdominal pain women, abdominal pain men, vaginal bleeding, weakness, fever, dyspnea, syncope, headache, dizziness, GI bleed, back pain, seizure, CVA, palpatations, mental health, musculoskeletal)? @ -Differential Vaginal Bleeding: Spontaneous , threatened , molar , ectopic , bloody show, incompetent cervix, abruptioplacenta, placenta previa, uterine rupture, dysfunctional uterine bleeding, hemorrhage, uterine fibroids, this is not meant to be an all-inclusive list. EKG interpreted by me (3pts min.). @ -None X-rays interpreted by me (1pt min.). @ -None done CT interpreted by me (1pt min.). @ -None done U/S interpreted by me (1pt. min.). @ -Transvaginal ultrasound reveals no evidence for acute process, fibroid uterus with 1 on the right measuring 6.4 x 5.9 x 5.2 cm What testing was considered but not performed or refused? (CT, X-rays, U/S, labs)? Why? @ -None What meds were considered but not given or refused? Why? @ -None Did you discuss the management of the patient with other professionals (professionals i.e. , PA, CONSTRUCTION PERSON, lab, RT, psych nurse, social worker delinquency prevention, public relations counselor, teacher, catapult and arresting gear officer, caser shoe parts)? Give summary @ -No Was smoking cessation discussed for >3mins.? @ -No Was critical care preformed (if so, how long)? @ -No Were there social determinants of health that impacted care today? How? (Homelessness, low income, unemployed, alcoholism, drug addiction, transportation, low edu. Level, literacy, decrease access to med. care, intermediate, rehab)? @ -No Was there de-escalation of care discussed even if they declined (Discuss DNR or withdrawal of care, Hospice)? DNR status @ -No What co-morbidities impacted this encounter? (DM, HTN, Smoking, COPD, CAD, Cancer, CVA, ARF, Chemo, Hep., AIDS, mental health diagnosis, sleep apnea, morbid obesity)? @ -None Was patient admitted / discharged? Hospital course, mention meds given and route, prescriptions, significant lab abnormalities, going to OR and other pertinent info. @ - Discharge. 39-year-old female sent emergency room with vaginal bleeding. Overall patient is well-appearing in no signs of distress. Abdominal semination is unremarkable. Patient was offered medication and was declined. Lab work is stable with a hemoglobin of 11.8. Urinalysis reveals no signs of infection with large blood. Ultrasound reveals fibroids with no otherwise discernible acute process. Patient has appointment scheduled with Thursday at OB. Return progress discussed. Case discussed with Dr. Cunningham Undiagnosed new problem with uncertain prognosis? @ -No Drug Therapy requiring intensive monitoring for toxicity (Heparin, Nitro, Insulin, Cardizem)? @ -No Were any procedures done? @ -No Diagnosis/symptom? @ -Menorrhagia Acute, or Chronic, or Acute on Chronic? @ -Acute Uncomplicated (without systemic symptoms) or Complicated (systemic symptoms)? @ -Uncomplicated Side effects of treatment? @ -No Exacerbation, Progression, or Severe Exacerbation? @ -No Poses a threat to life or bodily function? How? (Chest pain, USA, SC, pneumonia, PE, COPD, DKA, ARF, appy, cholecystitis, CVA, Diverticulitis, Homicidal, Suicidal, threat to staff... and all critical care pts) @ -No - Lab Data Result diagrams: 12/23/24 13:10 12/23/24 13:10 Lab Results 12/23/24 12/23/24 12/23/24 Range/Units 13:00 13:01 13:10 WBC 8.29 (4.50-10.00) 10*3/uL RBC 3.98 L (4.10-5.20) 10*6/uL Hgb 11.8 L (12.0-15.0) g/dL Hct 34.6 L (37.2-46.3) % MCV 86.9 (80.0-97.0) fL MCH 29.6 (27.0-32.0) pg MCHC 34.1 (32.0-37.0) g/dL Plt Count 248 (140-440) 10*3/uL MPV 11.7 (9.5-12.2) fL Immature Gran % (Auto) 0.2 % Neutrophils % 73.6 % Lymphocytes % 19.1 % Monocytes % 5.1 % Eosinophils % 1.4 % Basophils % 0.6 % Immature Gran # 0.02 (0.00-0.04) 10*3/uL Neutrophils # 6.10 (1.80-7.70) 10*3/uL Lymphocytes # 1.58 (0.90-5.00) 10*3/uL Monocytes # 0.42 (0.20-1.00) 10*3/uL Eosinophils # 0.12 (0.04-0.35) 10*3/uL Basophils # 0.05 (0.00-0.10) 10*3/uL PT (10.0-12.5) sec INR (<1.2) APTT (22.0-30.0) sec Sodium (137-145) mmol/L Potassium (3.5-5.1) mmol/L Chloride (98-107) mmol/L Carbon Dioxide (22-30) mmol/L Anion Gap mmol/L BUN (7-17) mg/dL Creatinine (0.52-1.04) mg/dL Est GFR (CKD-EPI)AfAm (>60 ml/min/1.73 sqM) Est GFR (CKD-EPI)NonAf (>60 ml/min/1.73 sqM) Glucose (74-99) mg/dL Calcium (8.4-10.2) mg/dL Total Bilirubin (0.2-1.3) mg/dL AST (14-36) U/L ALT (4-34) U/L Alkaline Phosphatase (38-126) U/L Total Protein (6.3-8.2) g/dL Albumin (3.5-5.0) g/dL Urine Color Yellow Urine Appearance Clear (Clear) Urine pH 6.5 (5.0-8.0) Ur Specific [place] 1.002 (1.001-1.035) Urine Protein 1+ H (Negative) Urine Glucose (UA) Negative (Negative) Urine Ketones Negative (Negative) Urine Blood Large H (Negative) Urine Nitrite Negative (Negative) Urine Bilirubin Negative (Negative) Urine Urobilinogen <2.0 (<2.0) mg/dL Ur Leukocyte Esterase Small H (Negative) Urine RBC 7 H (0-5) /hpf Urine WBC 1 (0-5) /hpf Ur Squamous Epith Cells 1 (0-4) /hpf Urine Bacteria Rare H (None) /hpf Blood Type Blood Type Confirm O Positive Blood Type Recheck Bld Type Recheck Status Antibody Screen Spec Expiration Date 12/23/24 12/23/24 12/23/24 Range/Units 13:10 13:10 13:11 WBC (4.50-10.00) 10*3/uL RBC (4.10-5.20) 10*6/uL Hgb (12.0-15.0) g/dL Hct (37.2-46.3) % MCV (80.0-97.0) fL MCH (27.0-32.0) pg MCHC (32.0-37.0) g/dL Plt Count (140-440) 10*3/uL MPV (9.5-12.2) fL Immature Gran % (Auto) % Neutrophils % % Lymphocytes % % Monocytes % % Eosinophils % % Basophils % % Immature Gran # (0.00-0.04) 10*3/uL Neutrophils # (1.80-7.70) 10*3/uL Lymphocytes # (0.90-5.00) 10*3/uL Monocytes # (0.20-1.00) 10*3/uL Eosinophils # (0.04-0.35) 10*3/uL Basophils # (0.00-0.10) 10*3/uL PT 11.0 (10.0-12.5) sec INR 1.0 (<1.2) APTT 24.6 (22.0-30.0) sec Sodium 136 L (137-145) mmol/L Potassium 3.8 (3.5-5.1) mmol/L Chloride 99 (98-107) mmol/L Carbon Dioxide 25 (22-30) mmol/L Anion Gap 12 mmol/L BUN 11 (7-17) mg/dL Creatinine 0.60 (0.52-1.04) mg/dL Est GFR (CKD-EPI)AfAm >90 (>60 ml/min/1.73 sqM) Est GFR (CKD-EPI)NonAf >90 (>60 ml/min/1.73 sqM) Glucose 110 H (74-99) mg/dL Calcium 9.5 (8.4-10.2) mg/dL Total Bilirubin 0.3 (0.2-1.3) mg/dL AST 28 (14-36) U/L ALT 37 H (4-34) U/L Alkaline Phosphatase 76 (38-126) U/L Total Protein 7.1 (6.3-8.2) g/dL Albumin 4.5 (3.5-5.0) g/dL Urine Color Urine Appearance (Clear) Urine pH (5.0-8.0) Ur Specific [place] (1.001-1.035) Urine Protein (Negative) Urine Glucose (UA) (Negative) Urine Ketones (Negative) Urine Blood (Negative) Urine Nitrite (Negative) Urine Bilirubin (Negative) Urine Urobilinogen (<2.0) mg/dL Ur Leukocyte Esterase (Negative) Urine RBC (0-5) /hpf Urine WBC (0-5) /hpf Ur Squamous Epith Cells (0-4) /hpf Urine Bacteria (None) /hpf Blood Type O Positive Blood Type Confirm Blood Type Recheck No Previous Record Bld Type Recheck Status CABO Indicated Antibody Screen NEGATIVE Spec Expiration Date 12/26/20242310 Disposition Clinical Impression: Fibroids, Menorrhagia Disposition: HOME SELF-CARE Condition: Good Instructions (If sedation given, give patient instructions): Menorrhagia (ED) Additional Instructions: Please return to the Emergency Department if symptoms worsen or any other anshu rns. Is patient prescribed a controlled substance at d/c from ED?: No Referrals: Nonstaff,Physician [Primary Care Provider] - 1-2 days Time of Disposition: 14:54
[2024-12-23 13:24] LABS: Basophils # (A) 0.05 10*3/uL (0.00-0.10); Basophils % (A) 0.6 %; Eosinophils # (A) 0.12 10*3/uL (0.04-0.35); Eosinophils % (A) 1.4 %; HCT 34.6 % (37.2-46.3); HGB 11.8 g/dL (12.0-15.0); Lymphocytes # (A) 1.58 10*3/uL (0.90-5.00); Lymphocytes % (A) 19.1 %; MCH 29.6 pg (27.0-32.0); MCHC 34.1 g/dL (32.0-37.0); MCV 86.9 fL (80.0-97.0); Mean Platelet Volume 11.7 fL (9.5-12.2); Monocytes # (A) 0.42 10*3/uL (0.20-1.00); Monocytes % (A) 5.1 %; Neutrophils % (A) 73.6 %; Platelet Count 248 10*3/uL (140-440); RBC 3.98 10*6/uL (4.10-5.20); RDW 12.7 % (11.5-14.5); WBC 8.29 10*3/uL (4.50-10.00)
[2024-12-23 13:33] LABS: ALT 37 U/L (4-34); AST 28 U/L (14-36); African American GFR (CKD) >90 (>60 ml/min/1.73 sqM); Albumin 4.5 g/dL (3.5-5.0); Alkaline Phosphatase 76 U/L (38-126); Anion Gap 12 mmol/L; Blood Urea Nitrogen 11 mg/dL (7-17); Calcium 9.5 mg/dL (8.4-10.2); Carbon Dioxide 25 mmol/L (22-30); Chloride 99 mmol/L (98-107); Glucose 110 mg/dL (74-99); Non-African American GFR(CKD) >90 (>60 ml/min/1.73 sqM); Potassium 3.8 mmol/L (3.5-5.1); Sodium 136 mmol/L (137-145); Total Bilirubin 0.3 mg/dL (0.2-1.3); Total Protein 7.1 g/dL (6.3-8.2)
[2024-12-23 13:36] LABS: Appearance,Urine Clear (Clear); Bacteria,Urine Rare /hpf; Bilirubin,Urine Negative (Negative); Blood,Urine Large (Negative); Color,Urine Yellow; Glucose,Urine (UA) Negative (Negative); Ketones,Urine Negative (Negative); Leukocyte Esterase,Urine Small (Negative); Nitrite,Urine Negative (Negative); PH, Urine 6.5 (5.0-8.0); Protein,Urine 1+ (Negative); RBC,Urine 7 /hpf (0-5); Specific Gravity,Urine 1.002 (1.001-1.035); Squamous Epithelial Cell,Urine 1 /hpf (0-4); Urobilinogen,Urine <2.0 mg/dL (<2.0); WBC,Urine 1 /hpf (0-5)
[2024-12-23 13:46] LABS: Partial Thromboplastin Time 24.6 sec (22.0-30.0)
--- NOTE | 2024-12-23 14:21 | US ---
EXAMINATION TYPE: US transvaginal DATE OF EXAM: 12/23/2024 COMPARISON: NONE CLINICAL INDICATION: Female, 39 years old with history of bleeding X15 days w/ clots; Bleeding x 15 d ays had a hysteroscopy bx hx of fibroids. TECHNIQUE: Transvaginal (TV). FINDINGS: EXAM MEASUREMENTS: Uterus: 9.3 x 5.4 x 11.5 cm Endometrial Stripe: 2 cm Right Ovary: 3.2 x 1.7 x 2.8 cm 1. Uterus: Anteverted Fibroids seen right side one measuring 6.4 x 5.9 x 52 cm left side 6.2 x 5.0 x 4.8 cm. Nabothian cysts seen. 2. Endometrium: Dilated 3. Right Ovary: Anechoic area seen 2.2 x 1.5 x 2.0 cm. 4. Left Ovary: Obscured by overlying bowel gas Spectral, color and waveform doppler imaging shows good arterial and venous flow within the right o vary; there is no evidence for ovarian torsion. 5. Bilateral Adnexa: wnl 6. Posterior cul-de-sac: wnl IMPRESSION: 1. No evidence for acute process. 2. Fibroid uterus. [facility], , 12/23/2024 2:19 PM
[2024-12-23 15:09] VITALS: BP 132/74; PULSE 85; RESP 16; TEMP 98.7
== END 2024-12-23 15:16 | disposition home or self-care (01) ==
LOC: EC 12:24
DX: D25.9 Leiomyoma of uterus, unspecified (principal); N92.0 Excessive and frequent menstruation with regular cycle; Z88.0 Allergy status to penicillin
CPT/HCPCS: 36415; 76830; 80053; 81001; 85025; 85610; 85730; 86850; 86900; 86901; 93976; 99284